=== PATIENT | male | born 1985 ===

== ENCOUNTER → 2020-03-11 | Outpatient (CLI) | payer BC | LOC: ZCOL.LAB 16:23 | DX: R19.7 Diarrhea, unspecified (principal); Z20.828 Contact with and (suspected) exposure to other viral communicable diseases ==

== ENCOUNTER → 2020-03-31 | Outpatient (CLI) | payer BC | LOC: ZCOL.LAB 17:11 | DX: Z20.828 Contact with and (suspected) exposure to other viral communicable diseases (principal) ==